=== PATIENT | male | born 1965 | race Caucasian/White ===

== ENCOUNTER 2016-08-30 20:33 | Emergency (ER) | payer BC ==
[2016-08-30 20:52] VITALS: BP 147/83
--- NOTE | 2016-08-30 21:03 | UC ---
Skin Complaint HPI - HPI Summary HPI Summary: laceration on back of head 10d ago. For staple removal. No problems - History of Current Complaint Chief Complaint: [facility] Time Seen by Provider: 08/30/16 20:55 Stated Complaint: NEEDS NAINA REMOVED Hx Obtained From: Patient Onset/Duration: Sudden Onset, Lasting Days - 10 Onset Severity: Mild Current Severity: None Location: Other - posterior scalp Aggravating: Touch Alleviating: Nothing - Allergy/Home Medications Allergies/Adverse Reactions: Allergies Allergy/AdvReac Type Severity Reaction Status Date / Time No Known Allergies Allergy Verified 08/30/16 20:52 Review of Systems Constitutional: Negative Skin: Other - stapled lac Eyes: Negative ENT: Negative Respiratory: Negative Cardiovascular: Negative Gastrointestinal: Negative Genitourinary: Negative Motor: Negative Neurovascular: Negative Musculoskeletal: Negative Neurological: Negative Psychological: Negative All Other Systems Reviewed And Are Negative: Yes PMH/Surg Hx/FS Hx/Imm Hx Endocrine History Of: Denies: Diabetes Cardiovascular History Of: Denies: Hypertension, Pacemaker/ICD GI/ History Of: Denies: Renal Disease - Surgical History Surgical History: Yes Surgery Procedure, Year, and Place: 80s cracked skull - no metal - Family History Known Family History: Positive: Hypertension - Social History Occupation: Employed Full-time - straddle truck driver Lives: With Family Alcohol Use: Occasionally Substance Use Type: None Smoking Status (MU): Former Smoker Type: Cigars Physical Exam Triage Information Reviewed: Yes Appearance: Well-Appearing, No Pain Distress, Well-Nourished Vital Signs: Initial Vital Signs Temp 98.4 F 08/30/16 20:47 Pulse 114 08/30/16 20:47 Resp 16 08/30/16 20:47 BP 147/83 08/30/16 20:47 Pulse Ox 99 08/30/16 20:47 Vital Signs Reviewed: Yes Eye Exam: Normal Neck exam: Normal Respiratory Exam: Normal Musculoskeletal Exam: Normal Neurological Exam: Normal Psychological Exam: Normal Skin Exam: Other - naina intact, wound scabbed and well-healed. Removed 6 naina without difficulty Course/Dx - Diagnoses Provider Diagnoses: staple removal Discharge - Discharge Plan Condition: Stable Disposition: HOME Referrals: EILEL Ventura [Primary Care Provider] - Additional Instructions: KEep the wound clean with soap and water.
== END 2016-08-30 21:09 | disposition home or self-care (01) ==
LOC: UCCORT 20:33
DX: Z48.02 Encounter for removal of sutures (principal); Z87.891 Personal history of nicotine dependence
CPT/HCPCS: 99211; G0463